=== PATIENT | female | born 1970 | race American Indian/Alaskan Native ===

== ENCOUNTER 2019-09-10 13:09 | Emergency (ER) | payer MEDICAID ==
[~2019-09-10] VITALS: Ht 165.1 cm; Wt 75.0 kg
--- NOTE | 2019-09-10 14:05 | NUR ---
PT STATES ANXIETY STARTED THURSDAY. HAS BEEN DRINKING AND WAS SEEN AT ANOTHER HOSPITAL BUT WOULDNT TELL ME WHAT HOSPITAL AND SHE RECEIVED IV FLUIDS AND ZOFRAN. [place] AND FEELS VERY EMBARRASSED BEING HERE. HER EX JUST . SHE IS STAYING AT A HOTEL [place].
[2019-09-10 14:37] LABS: BASOPHILS % (AUTO) 0.5 % (0-1); EOSINOPHILS # (AUTO) 0.1 X10'3 (0-0.9); EOSINOPHILS % (AUTO) 0.7 % (0-6); HEMATOCRIT 45.9 % (35.0-45.0); HEMOGLOBIN 16.1 g/dl (12.0-16.0); LYMPHOCYTES # (AUTO) 3.9 X10'3 (1.1-4.8); LYMPHOCYTES % (AUTO) 45.1 % (21-51); MEAN CORPUSCULAR HEMOGLOBIN 34.2 PG (27.0-31.0); MEAN CORPUSCULAR HGB CONC 35.1 g/dL (33.0-36.5); MEAN CORPUSCULAR VOLUME 97.5 FL (78-98); MEAN PLATELET VOLUME 7.4 FL (7.4-10.4); MONOCYTES # (AUTO) 0.4 X10'3 (0-0.9); MONOCYTES % (AUTO) 4.8 % (2-12); NEUTROPHILS # (AUTO) 4.2 X10'3 (1.8-7.7); NEUTROPHILS % (AUTO) 48.9 % (42-75); PLATELET COUNT 369 X10'3 (140-440); RED BLOOD COUNT 4.71 X10'6 (4.20-5.60); WHITE BLOOD COUNT 8.6 X10'3 (4.5-11.0)
[2019-09-10 14:44] LABS: URINE HCG NEGATIVE (NEG)
[2019-09-10 14:49] LABS: URINE AMPHETAMINE SCREEN NEGATIVE (Neg); URINE BARBITUATE SCREEN NEGATIVE (Neg); URINE BENZODIAZEPINES SCREEN NEGATIVE (Neg); URINE CANNABINOID SCREEN NEGATIVE (Neg); URINE COCAINE SCREEN NEGATIVE (Neg); URINE METHADONE SCREEN NEGATIVE (Neg); URINE OPIATE SCREEN NEGATIVE (Neg); URINE PHENCYCLIDINE SCREEN NEGATIVE (Neg)
[2019-09-10 14:50] LABS: ALANINE AMINOTRANSFERASE 35 U/L (12-78); ALBUMIN 4.6 G/DL (3.4-5.0); ALKALINE PHOSPHATASE 112 IU/L (46-116); ANION GAP 11 (8-16); ASPARTATE AMINO TRANSFERASE 34 U/L (10-37); BILIRUBIN,TOTAL 0.2 MG/DL (0.1-1.0); BLOOD UREA NITROGEN 14 MG/DL (7-18); BUN/CREATININE RATIO 16.9 (6.6-38.0); CALCIUM 9.4 MG/DL (8.5-10.1); CHLORIDE 104 MMOL/L (99-107); CREATININE 0.83 MG/DL (0.40-0.90); GLUCOSE 126 MG/DL (70-104); POTASSIUM 3.8 MMOL/L (3.5-5.1); SODIUM 144 MMOL/L (135-145); TOTAL CARBON DIOXIDE 29.4 MMOL/L (24-32); TOTAL PROTEIN 9.4 G/DL (6.4-8.2); eGFR 73 ML/MIN
[2019-09-10 14:52] LABS: ETHANOL 0.316 GM/DL (0.0-0.010)
[2019-09-10 14:59] VITALS: BP 146/77
--- NOTE | 2019-09-10 15:10 | NUR ---
RECEIVED CALL FROM DR. MOODY, STATING THAT WE WILL HAVE TO KEEP PT FOR A WHILE DUE TO HIGH ALCOHOL LEVEL, UNSAFE TO DRIVE. INFORMED PT OF ABOVE.
[2019-09-10] MEDS ORDERED: pantoprazole 40mg Tablet.DR PO ONE (15:15)
--- NOTE | 2019-09-10 15:22 | NUR ---
PT NOT IN HER ROOM. CANNOT LOCATE PT. INFORMED DR. MOODY.
--- NOTE | 2019-09-10 15:27 | NUR ---
SPOKE WITH GUNNER AT [facility] INFORMED HER PT ELOPED FROM ER WITH A BLOOD ALCOHOL LEVEL OF .316. SHE DROVE HERSELF TO ER FROM HOTEL THAT SHES STAYING AT. GUNNER SAYS REPORT DOESNT NEED TO BE FILED BECAUSE WE DONT HAVE A DESCRIPTION OF CAR AND NOT SURE IF SHE IS DRIVING.
== END 2019-09-10 15:45 | disposition home or self-care (01) ==
LOC: ER 13:10
DX: F10.920 Alcohol use, unspecified with intoxication, uncomplicated (principal); R11.2 Nausea with vomiting, unspecified; R19.7 Diarrhea, unspecified; F41.9 Anxiety disorder, unspecified; F32.9 Major depressive disorder, single episode, unspecified; F17.200 Nicotine dependence, unspecified, uncomplicated; F12.90 Cannabis use, unspecified, uncomplicated; Y90.9 Presence of alcohol in blood, level not specified
CPT/HCPCS: 36415; 80053; 80305; 80320; 81025; 85025; 99283